=== PATIENT | male | born 1995 | race Caucasian/White ===

== ENCOUNTER 2023-08-09 19:23 | Emergency (ER) | payer BC ==
[~2023-08-09] VITALS: Ht 162.6 cm; Wt 59.0 kg
[2023-08-09 19:46] VITALS: BP_SYST 135; PULSE 89; RESP 17; TEMP 98.8; O2SAT 98
[2023-08-09] MEDS ORDERED: IBUP-1971 PO (19:59)
[2023-08-09] MEDS ORDERED: AMOX-423 PO (19:59)
[2023-08-09] MEDS ORDERED: AMOXICILLIN/POTASSIUM CLAV 875 MG TABLET PO ONE (20:00)
[2023-08-09] MEDS ORDERED: DIPHTH,PERTUSS(ACELL),TET VAC 0.5 ML VIAL (Tdap) I.M. ONE (20:00)
[2023-08-09] MEDS ORDERED: BACITRACIN 1 GM OINT TP ONE (20:00)
[2023-08-09] MEDS ORDERED: HYDROcodone/ACETAMIN 7.5-325 MG TAB PO ONE (20:00)
[2023-08-09] MEDS ORDERED: IBUPROFEN 800 MG TABLET PO ONE (20:00)
[2023-08-09 20:44] VITALS: BP_SYST 135; PULSE 89; RESP 17; TEMP 98.8; O2SAT 98
== END 2023-08-09 20:44 | disposition home or self-care (01) ==
LOC: SED 19:23
DX: S51.812A Laceration without foreign body of left forearm, initial encounter (principal); S51.831A Puncture wound without foreign body of right forearm, initial encounter; Z79.899 Other long term (current) drug therapy; W54.0XXA Bitten by dog, initial encounter; Y93.89 Activity, other specified; Y92.89 Other specified places as the place of occurrence of the external cause; Y99.8 Other external cause status
CPT/HCPCS: 90715; 99284